=== PATIENT | female | born 1955 | race Caucasian/White ===

== ENCOUNTER 2019-09-23 16:05 | Inpatient (IN) | payer BC, OTHER ==
[~2019-09-23] VITALS: Ht 162.6 cm; Wt 73.5 kg
[2019-09-23 17:34] LABS: Basophils # (auto) 0.1 10 ^3/uL (0-0.2); Basophils % (auto) 0.4 % (0.0-2.0); Eosinophils # (auto) 0.1 10 ^3/uL (0-0.8); Eosinophils % (auto) 0.6 % (0.0-7.0); Hematocrit 43.6 % (36.0-46.0); Hemoglobin 14.5 g/dL (12.2-16.2); Lymphocytes # (auto) 1.9 10 ^3/uL (0.4-5.4); Lymphocytes % (auto) 9.6 % (10.0-50.0); Mean Corpuscular Hemoglobin 30.9 pg (28.0-32.0); Mean Corpuscular Hgb Conc. 33.2 g/dL (32.0-36.0); Mean Corpuscular Volume 93.2 fL (80.0-100.0); Monocytes # (auto) 0.9 10 ^3/uL (0-1.3); Monocytes % (auto) 4.3 % (0.0-12.0); Neutrophils # (auto) 17.2 10 ^3/uL (1.6-8.6); Neutrophils % (auto) 85.1 % (37.0-80.0); Nucleated Red Blood Cells % 0.1 %; Platelet Count (auto) 330 10^3/uL (140-450); Red Blood Cells 4.68 10^6/uL (4.0-5.20); Red Cell Distribution Width 14.9 % (11.8-14.3); White Blood Cell 20.2 10^3/uL (4.4-10.8)
[2019-09-23 17:54] LABS: Albumin 3.3 g/dL (3.4-5.0); Calcium 8.8 mg/dL (8.5-10.1); Potassium 3.5 mmol/L (3.5-5.1)
[2019-09-23 17:57] LABS: Bilirubin, Total 0.5 mg/dL (0.2-1.0); Total Protein 7.4 g/dL (6.4-8.2)
[2019-09-23] MEDS ORDERED: VANCOMYCIN PER PHARMACY 0 MG IV SCH (20:00)
[2019-09-23] MEDS ORDERED: PIPERACILLIN-TAZOB 3.375GM 100 ML IV ONE (20:00)
[2019-09-23] MEDS ORDERED: FUROSEMIDE 20 MG/2 ML VIAL IV ONE (20:00)
[2019-09-23] MEDS: VANCOMYCIN 1GM/250ML 250 ML IV SCH (22:07)
[2019-09-23] MEDS ORDERED: ONDANSETRON HCL 4 MG/2 ML VIAL IV PRN (23:00)
[2019-09-23] MEDS ORDERED: ACETAMINOPHEN 325 MG TAB PO PRN (23:00)
[2019-09-23] MEDS ORDERED: LABETALOL HCL 5 MG/ML 4ML SYRINGE IV ONE (23:00)
[2019-09-23] MEDS ORDERED: TEMAZEPAM 15 MG CAP PO PRN (23:00)
[2019-09-23 23:45] VITALS: BP 155/86
[2019-09-24] VITALS (8 sets, daily range): BP systolic 116–139; BP diastolic 65–90
[2019-09-24] MEDS: HYDROcodone-ACET 5/325MG TAB PO PRN ×4 (00:43→21:32)
[2019-09-24] MEDS ORDERED: LISI-646 PO (00:57)
[2019-09-24] MEDS ORDERED: PNEUMOCOCCAL VACC POLYS 25 MCG/0.5 ML VIAL IM ONE (01:00)
[2019-09-24 06:04] LABS: Basophils # (auto) 0.1 10 ^3/uL (0-0.2); Basophils % (auto) 0.4 % (0.0-2.0); Eosinophils # (auto) 0.2 10 ^3/uL (0-0.8); Eosinophils % (auto) 1.6 % (0.0-7.0); Hematocrit 41.7 % (36.0-46.0); Hemoglobin 13.6 g/dL (12.2-16.2); Lymphocytes # (auto) 1.8 10 ^3/uL (0.4-5.4); Lymphocytes % (auto) 12.1 % (10.0-50.0); Mean Corpuscular Hemoglobin 31.3 pg (28.0-32.0); Mean Corpuscular Hgb Conc. 32.5 g/dL (32.0-36.0); Mean Corpuscular Volume 96.2 fL (80.0-100.0); Monocytes # (auto) 0.9 10 ^3/uL (0-1.3); Monocytes % (auto) 6.1 % (0.0-12.0); Neutrophils # (auto) 11.8 10 ^3/uL (1.6-8.6); Neutrophils % (auto) 79.8 % (37.0-80.0); Platelet Count (auto) 301 10^3/uL (140-450); Red Blood Cells 4.34 10^6/uL (4.0-5.20); Red Cell Distribution Width 15.1 % (11.8-14.3); White Blood Cell 14.7 10^3/uL (4.4-10.8)
[2019-09-24 06:27] LABS: Potassium 3.7 mmol/L (3.5-5.1)
[2019-09-24 06:28] LABS: BUN/Creatinine Ratio 19.2; Calcium 8.3 mg/dL (8.5-10.1)
[2019-09-24] MEDS: FAMOTIDINE 20 MG TAB PO SCH ×2 (10:10→21:32)
[2019-09-24] MEDS: cefTRIAXone 1GM/50ML D5W 50 ML IV SCH (10:10)
[2019-09-24] MEDS: LISINOPRIL 20 MG TAB PO SCH ×2 (10:12→21:32)
[2019-09-24] MEDS: VANCOMYCIN 1GM/250ML 250 ML IV SCH (16:37)
[2019-09-24] MEDS: IPRATROPIUM BROM 0.5 MG/2.5ML INH SOL NEB SCH (18:25)
[2019-09-24] MEDS: ALBUTEROL SULF 2.5 MG/0.5ML(0.5%) NEB SOLN NEB SCH (18:26)
[2019-09-25 05:00] VITALS: BP_SYST 122; BP_SYST 159; BP_DIAS 77; BP_DIAS 82
[2019-09-25] MEDS: ALBUTEROL SULF 2.5 MG/0.5ML(0.5%) NEB SOLN NEB SCH ×3 (06:21→18:29)
[2019-09-25] MEDS: IPRATROPIUM BROM 0.5 MG/2.5ML INH SOL NEB SCH ×3 (06:21→18:29)
[2019-09-25 08:00] VITALS: BP 132/72
[2019-09-25 08:46] VITALS: BP 132/72
[2019-09-25] MEDS: VANCOMYCIN 1GM/250ML 250 ML IV SCH (09:20)
[2019-09-25] MEDS: LISINOPRIL 20 MG TAB PO SCH ×2 (09:21→21:52)
[2019-09-25] MEDS: FAMOTIDINE 20 MG TAB PO SCH ×2 (09:21→21:47)
[2019-09-25] MEDS: ENOXAPARIN SOD 40 MG/0.4 ML SYRINGE SC SCH (09:21)
[2019-09-25] MEDS: cefTRIAXone 1GM/50ML D5W 50 ML IV SCH (10:49)
[2019-09-25 10:53] LABS: Basophils # (auto) 0 10 ^3/uL (0-0.2); Basophils % (auto) 0.4 % (0.0-2.0); Eosinophils # (auto) 0.2 10 ^3/uL (0-0.8); Eosinophils % (auto) 1.9 % (0.0-7.0); Hematocrit 40.5 % (36.0-46.0); Hemoglobin 13.7 g/dL (12.2-16.2); Lymphocytes # (auto) 1.6 10 ^3/uL (0.4-5.4); Lymphocytes % (auto) 15.3 % (10.0-50.0); Mean Corpuscular Hemoglobin 31.6 pg (28.0-32.0); Mean Corpuscular Hgb Conc. 33.7 g/dL (32.0-36.0); Mean Corpuscular Volume 93.8 fL (80.0-100.0); Monocytes # (auto) 0.5 10 ^3/uL (0-1.3); Monocytes % (auto) 4.9 % (0.0-12.0); Neutrophils # (auto) 7.9 10 ^3/uL (1.6-8.6); Neutrophils % (auto) 77.5 % (37.0-80.0); Platelet Count (auto) 337 10^3/uL (140-450); Red Blood Cells 4.32 10^6/uL (4.0-5.20); Red Cell Distribution Width 14.9 % (11.8-14.3); White Blood Cell 10.2 10^3/uL (4.4-10.8)
[2019-09-25 11:12] LABS: BUN/Creatinine Ratio 19.7; Calcium 8.8 mg/dL (8.5-10.1); Potassium 3.6 mmol/L (3.5-5.1)
[2019-09-25 12:46] VITALS: BP 142/79
[2019-09-25 16:50] VITALS: BP 140/70
[2019-09-25 22:00] VITALS: BP 133/91
[2019-09-25] MEDS: HYDROcodone-ACET 5/325MG TAB PO PRN (22:09)
[2019-09-26] MEDS: VANCOMYCIN 1GM/250ML 250 ML IV SCH (03:46)
[2019-09-26 05:00] VITALS: BP 132/68
[2019-09-26] MEDS: ALBUTEROL SULF 2.5 MG/0.5ML(0.5%) NEB SOLN NEB SCH ×3 (05:59→19:12)
[2019-09-26] MEDS: IPRATROPIUM BROM 0.5 MG/2.5ML INH SOL NEB SCH ×3 (05:59→19:12)
[2019-09-26 06:01] LABS: Basophils # (auto) 0 10 ^3/uL (0-0.2); Basophils % (auto) 0.2 % (0.0-2.0); Eosinophils # (auto) 0.2 10 ^3/uL (0-0.8); Eosinophils % (auto) 2.6 % (0.0-7.0); Hemoglobin 12.8 g/dL (12.2-16.2); Lymphocytes # (auto) 1.6 10 ^3/uL (0.4-5.4); Lymphocytes % (auto) 16.6 % (10.0-50.0); Mean Corpuscular Hemoglobin 31.7 pg (28.0-32.0); Mean Corpuscular Hgb Conc. 33.8 g/dL (32.0-36.0); Mean Corpuscular Volume 93.7 fL (80.0-100.0); Monocytes # (auto) 0.6 10 ^3/uL (0-1.3); Monocytes % (auto) 6.5 % (0.0-12.0); Neutrophils % (auto) 74.1 % (37.0-80.0); Nucleated Red Blood Cells % 0.1 %; Platelet Count (auto) 343 10^3/uL (140-450); Red Blood Cells 4.05 10^6/uL (4.0-5.20); Red Cell Distribution Width 14.6 % (11.8-14.3); White Blood Cell 9.4 10^3/uL (4.4-10.8)
[2019-09-26 06:12] LABS: BUN/Creatinine Ratio 21.9; Calcium 8.2 mg/dL (8.5-10.1); Potassium 3.5 mmol/L (3.5-5.1)
[2019-09-26] MEDS: LISINOPRIL 20 MG TAB PO SCH (08:46)
[2019-09-26] MEDS: FAMOTIDINE 20 MG TAB PO SCH (08:46)
[2019-09-26] MEDS: ENOXAPARIN SOD 40 MG/0.4 ML SYRINGE SC SCH (08:46)
[2019-09-26] MEDS: HYDROcodone-ACET 5/325MG TAB PO PRN ×2 (08:46→14:41)
[2019-09-26] MEDS: cefTRIAXone 1GM/50ML D5W 50 ML IV SCH (08:47)
[2019-09-26 09:00] VITALS: BP 143/72
[2019-09-26 13:00] VITALS: BP 142/70
[2019-09-26] MEDS ORDERED: predniSONE 20 MG TAB PO SCH (15:15)
[2019-09-26] MEDS ORDERED: AMOXICILLIN/CLAVUL 875 MG TAB PO SCH (15:15)
[2019-09-26] MEDS ORDERED: AMOX-277 PO (15:30)
[2019-09-26] MEDS ORDERED: PRED20TA2 PO (15:30)
[2019-09-26 15:51] VITALS: BP 143/72
[2019-09-26] MEDS ORDERED: VANCOMYCIN 1GM/250ML 250 ML IV SCH (16:00)
[2019-09-26 17:00] VITALS: BP 135/86
== END 2019-09-26 20:26 | disposition home health service (06) | DRG 603 ==
LOC: ER 16:05 → EDBD 16:05 → WEST WING 16:06
PROVIDERS: ADMIT Nurse Practitioner; ATTEND Internal Medicine
DX: L03.113 Cellulitis of right upper limb (principal); E44.1 Mild protein-calorie malnutrition; R65.10 Systemic inflammatory response syndrome (SIRS) of non-infectious origin without acute organ dysfunction; J44.1 Chronic obstructive pulmonary disease with (acute) exacerbation; K50.90 Crohn's disease, unspecified, without complications; J96.11 Chronic respiratory failure with hypoxia; F12.90 Cannabis use, unspecified, uncomplicated; F17.210 Nicotine dependence, cigarettes, uncomplicated; I11.0 Hypertensive heart disease with heart failure; I50.9 Heart failure, unspecified; D72.829 Elevated white blood cell count, unspecified; Z80.3 Family history of malignant neoplasm of breast; Z68.27 Body mass index [BMI] 27.0-27.9, adult; Z90.710 Acquired absence of both cervix and uterus; Z90.49 Acquired absence of other specified parts of digestive tract
CPT/HCPCS: 36415; 71046; 73200; 80048; 80053; 80202; 83605; 83880; 84484; 85025; 87040; 87205; 93005; 94640; 96365; 96367; 96375; G0378; J0696; J2543; J3490

== ENCOUNTER 2022-03-19 18:31 | Emergency (ER) | payer BC, OTHER ==
[~2022-03-19] VITALS: Ht 162.6 cm; Wt 50.0 kg
[~2022-03-19 18:31] MED LIST: AMOX-277 PO; LISI20TA28 PO; PRED20TA2 PO
[2022-03-19] MEDS ORDERED: MAGNESIUM SULFATE 1GM/100ML 100 ML IV ONE (19:30)
[2022-03-19] MEDS ORDERED: IPRATROPIUM BROM 0.5 MG/2.5ML INH SOL NEB ONE ×2 (19:30→23:15)
[2022-03-19] MEDS ORDERED: FUROSEMIDE 40 MG/4 ML VIAL IV ONE (19:30)
[2022-03-19] MEDS ORDERED: methylPREDNISolone SOD SUCC 125 MG/2 ML VL IV ONE (19:30)
[2022-03-19] MEDS ORDERED: ALBUTEROL SULF 2.5 MG/0.5ML(0.5%) NEB SOLN NEB ONE ×2 (19:30→23:15)
[2022-03-19 19:36] LABS: Basophils # (auto) 0 10 ^3/uL (0-0.2); Basophils % (auto) 0.4 % (0.0-2.0); Eosinophils # (auto) 0.2 10 ^3/uL (0-0.8); Hematocrit 47.2 % (36.0-46.0); Lymphocytes # (auto) 1.6 10 ^3/uL (0.4-5.4); Lymphocytes % (auto) 18.1 % (10.0-50.0); Mean Corpuscular Hemoglobin 29.9 pg (28.0-32.0); Mean Corpuscular Hgb Conc. 31.7 g/dL (32.0-36.0); Mean Corpuscular Volume 94.2 fL (80.0-100.0); Monocytes # (auto) 0.5 10 ^3/uL (0-1.3); Monocytes % (auto) 4.9 % (0.0-12.0); Neutrophils # (auto) 6.8 10 ^3/uL (1.6-8.6); Neutrophils % (auto) 74.6 % (37.0-80.0); Nucleated Red Blood Cells % 0.1 %; Red Blood Cells 5.01 10^6/uL (4.0-5.20); Red Cell Distribution Width 18.2 % (11.8-14.3); White Blood Cell 9.1 10^3/uL (4.4-10.8)
[2022-03-19 19:51] LABS: Albumin 3.1 g/dL (3.4-5.0); Calcium 8.8 mg/dL (8.5-10.1); Potassium 3.9 mmol/L (3.5-5.1)
[2022-03-19 19:54] LABS: BUN/Creatinine Ratio 17.1; Bilirubin, Total 0.4 mg/dL (0.2-1.0); Total Protein 6.8 g/dL (6.4-8.2)
[2022-03-19] MEDS ORDERED: hydrALAZINE HCL 25 MG TAB PO ONE (23:00)
[2022-03-20 01:20] VITALS: BP 132/71
== END 2022-03-20 01:24 | disposition home or self-care (01) ==
LOC: ER 18:34
DX: J44.1 Chronic obstructive pulmonary disease with (acute) exacerbation (principal); I11.0 Hypertensive heart disease with heart failure; I50.9 Heart failure, unspecified; Z20.822 Contact with and (suspected) exposure to COVID-19; Z90.49 Acquired absence of other specified parts of digestive tract; Z90.710 Acquired absence of both cervix and uterus
CPT/HCPCS: 36415; 71046; 71275; 80053; 84484; 85025; 87426; 93005; 94640; 96365; 96375; 99285; J1940; J2930; J3475; J7644